=== PATIENT | female | born 1960 | race Caucasian/White ===

== ENCOUNTER 2018-04-19 16:43 | Inpatient (IN) ==
--- NOTE | 2018-04-19 17:01 | Emergency Department Note ---
Disposition Clinical Impression: Community acquired pneumonia Qualifiers: Laterality: right Lung location: upper lobe of lung Qualified Code(s): J18.1 - Lobar pneumonia, unspecified organism COPD (chronic obstructive pulmonary disease) Qualifiers: COPD type: unspecified COPD Qualified Code(s): J44.9 - Chronic obstructive pulmonary disease, unspecified Disposition: Admitted As Inpatient General Adult HPI - General Chief complaint: ED Shortness of Breath/Dyspnea Stated complaint: "pnuemonia sent from pulmonology" Time Seen by Provider: 04/19/18 17:01 Nursing Notes Reviewed: Yes Vital Signs Reviewed: Yes - History of Present Illness HPI Narrative: Patient's a 57-year-old female with history of COPD currently being treated for pneumonia who presents with continued shortness of breath, chest pain for the past 2 days. She states that at night she has severe pain in her chest anytime she rolls around. The pain is worse with deep inspiration. She otherwise continues on her home 2 L of oxygen. She has been on Augmentin and prednisone for the past 2 weeks. She states that her cough continues to be severe and she intermittently brings up sputum. He otherwise has subjective fevers and chills at home. Otherwise denies nausea, vomiting, diarrhea, abdominal pain, dysuria, hematuria. Pain Scale: 8 - Related Data Home Medications Medication Instructions Recorded Confirmed Albuterol Inhaler 06/18/17 Duoneb IH PRN PRN 06/18/17 Stilipto 08/25/17 Previous Rx's Medication Instructions Recorded Doxycycline 100 mg PO BID #14 capsule 06/18/17 Ibuprofen 800 mg PO TID PRN #15 tablet 08/25/17 Allergies Allergy/AdvReac Type Severity Reaction Status Date / Time No Known Allergies Allergy Verified 08/25/17 16:23 All systems ED: reviewed and negative except as stated. Review of Systems: As Per HPI Constitutional: Reports: fever, chills. Denies: weakness, weight change Cardiovascular: Reports: chest pain, dyspnea on exertion, orthopnea. Denies: palpitations, edema Respiratory: Reports: cough, dyspnea. Denies: wheezes, hemoptysis, stridor Gastrointestinal: Denies: abdominal pain, nausea, vomiting, diarrhea, constipation Genitourinary: Denies: urgency, dysuria, frequency Musculoskeletal: Denies: back pain Integumentary: Denies: rash Neurological: Denies: headache, weakness, numbness, paresthesias Psychiatric: Denies: anxiety, depression Endocrine: Denies: fatigue Past Medical History - Past Medical History Attestation: Yes The following information was validated with the patient. Medical history: Reports: COPD Surgical history: Reports: hysterectomy Psychiatric history: Reports: no psych history - Social History Smoking Status: Current every day smoker Smokeless Tobacco Status: No Alcohol use: Reports: none Drug use: Reports: none Physical Exam - General Limitations: no limitations General appearance: alert - Head Head exam: atraumatic, normocephalic - Eye Eye exam: Present: normal appearance, PERRL - ENT ENT exam: normal exam - Respiratory Respiratory exam: Present: normal lung sounds bilaterally, other (on 2L NC). Absent: respiratory distress - Expanded Respiratory Exam Location: rhonchi: Left, Right - Cardiovascular Cardiovascular exam: Present: regular rate, normal rhythm, normal heart sounds - Abdominal Exam Abdominal exam: Present: soft, Non-Tender. Absent: distention, guarding, rebound, rigidity - Extremities Exam Extremities exam: Present: normal inspection. Absent: pedal edema - Neurological Exam Neurological exam: Present: alert, oriented X3 - Psychiatric Psychiatric exam: Present: normal affect, normal mood - Skin Skin exam: Present: warm, dry, intact Course Course Narrative: 57-year-old female with COPD and currently being treated for pneumonia. New- onset pleuritic chest pain with concern for pulmonary embolus him. At this point the patient is low risk and we will therefore obtain d-dimer. Vital Signs Temperature 98.8 F 04/19/18 16:53 Pulse Rate 107 04/19/18 16:53 Respiratory Rate 20 04/19/18 16:53 Blood Pressure 110/67 04/19/18 16:53 O2 Sat by Pulse Oximetry 96 04/19/18 16:53 Temperature 98.8 F 04/19/18 17:05 Pulse Rate 107 04/19/18 17:05 Respiratory Rate 20 04/19/18 17:05 Blood Pressure 110/67 04/19/18 17:05 O2 Sat by Pulse Oximetry 98 04/19/18 17:15 Oxygen Delivery Oxygen Delivery Room Air Medical Decision Making - [facility] Narrative Medical decision making narrative: 57-year-old female with history of COPD presenting with failed outpatient management of her pneumonia. Recent CT scan from 04/17/18 reveals continued right-sided pneumonia. Patient's dyspnea on exertion and pain with deep inhalation and evaluated for PE with d-dimer which was negative. No need for CTA chest at this point. Otherwise patient has leukocytosis and tachycardia and therefore meet site SIRS criteria. Chest XR reveals no focal consolidation but given rhonchi and continued dyspnea, likely is non-radiographic persistent pneumonia. We will obtain blood cultures and begin the patient on broad-spectrum antibiotics. Discussed case with Dr. Handy, hospitalist who will admit the patient. Patient agrees with and understands course of treatment plan including plan for admission. All questions answered. - Medical Records Medical records reviewed: Yes I reviewed the patient's medical records. - Lab Data Lab results reviewed: Yes I reviewed the patient's lab results. Result diagrams: 04/19/18 17:30 04/19/18 17:30 Lab Results 04/19/18 04/19/18 04/19/18 Range/Units 17:30 17:30 17:30 WBC 15.0 H (4.3-11.1) K/mcL RBC 4.51 (3.82-4.97) M/mcL Hgb 14.2 (11.5-15.4) g/dL Hct 43.4 (35.3-44.9) % MCV 96.2 (83.0-100.0) fL MCH 31.5 (28.0-33.3) pg MCHC 32.7 (31.6-35.5) g/dL RDW 14.0 (11.5-14.5) % Plt Count 336 (140-400) K/mcL MPV 9.8 (9.4-12.4) fL Immature Gran % 0.4 (0-4) % Seg Neutrophils % 86.5 % Lymphocytes % 8.5 % Monocytes % 3.6 % Eosinophils % 0.7 % Basophils % 0.3 % Neutrophils # 13.0 H (1.6-8.9) K/mcL Lymphocytes # 1.3 (0.6-4.6) K/mcL Monocytes # 0.5 (0.0-1.3) K/mcL Eosinophils # 0.1 (0.0-0.6) K/mcL Basophils # 0.1 (0.0-0.2) K/mcL D-Dimer < 215 (0-500) ng/mLFEU Sodium 143 (136-145) mEq/L Potassium 3.5 (3.5-5.1) mEq/L Chloride 109 H (98-107) mEq/L Carbon Dioxide 26 (23-29) mEq/L BUN 10 (6-20) mg/dL Creatinine 0.66 (0.60-1.20) mg/dL Est GFR ( Amer) > 60 (> 60) Est GFR (Non-Af Amer) > 60 (> 60) BUN/Creatinine Ratio 15 (6-26) Glucose 149 H (70-105) mg/dL Calculated Osmolality 298 (280-300) Calcium 9.1 (8.6-10.3) mg/dL Total Bilirubin 0.2 L (0.3-1.0) mg/dL AST 11 L (13-39) Units/L ALT 7 (7-52) Units/L Alkaline Phosphatase 96 (34-104) Units/L Troponin I < 0.03 (< 0.04) ng/mL Serum Total Protein 6.5 (6.4-8.9) g/dL Albumin 4.3 (3.5-5.7) g/dL Globulin 2.2 L (2.4-3.5) g/dL Albumin/Globulin Ratio 2.0 (1.1-2.2) - Radiology Data Radiology results reviewed: Yes I reviewed the patient's radiology results. - EKG Data EKG #1 EKG attestation: Yes I reviewed and interpreted this EKG. EKG results narrative: Normal sinus rhythm rate of 86. Normal axis. IL 216, QRS 95, QT 384, QTC 457. No evidence of ST elevation. No significant changes from previous EKG dated 05/11/2013.
[2018-04-19 17:52] LABS: Basophils # 0.1 K/mcL (0.0-0.2); Basophils % 0.3 %; Eosinophils # 0.1 K/mcL (0.0-0.6); Eosinophils % 0.7 %; Hematocrit 43.4 % (35.3-44.9); Hemoglobin 14.2 g/dL (11.5-15.4); Immature Granulocytes % 0.4 % (0-4); Lymphocytes # 1.3 K/mcL (0.6-4.6); Lymphocytes % 8.5 %; Mean Corpuscular HGB Conc 32.7 g/dL (31.6-35.5); Mean Corpuscular Hemoglobin 31.5 pg (28.0-33.3); Mean Corpuscular Volume 96.2 fL (83.0-100.0); Mean Platelet Volume 9.8 fL (9.4-12.4); Monocytes # 0.5 K/mcL (0.0-1.3); Monocytes % 3.6 %; Platelet Count 336 K/mcL (140-400); Red Blood Count 4.51 M/mcL (3.82-4.97); Segmented Neutrophils % 86.5 %
[2018-04-19 18:14] LABS: Alanine Aminotransferase 7 Units/L (7-52); Albumin 4.3 g/dL (3.5-5.7); Alkaline Phosphatase 96 Units/L (34-104); Aspartate Amino Transferase 11 Units/L (13-39); BUN/Creatinine Ratio 15 (6-26); Bilirubin,Total 0.2 mg/dL (0.3-1.0); Blood Urea Nitrogen 10 mg/dL (6-20); Calcium 9.1 mg/dL (8.6-10.3); Carbon Dioxide 26 mEq/L (23-29); Chloride 109 mEq/L (98-107); Globulin 2.2 g/dL (2.4-3.5); Glucose 149 mg/dL (70-105); Osmolality,Calculated 298 (280-300); Potassium 3.5 mEq/L (3.5-5.1); Sodium 143 mEq/L (136-145); Total Protein 6.5 g/dL (6.4-8.9); Troponin I < 0.03 ng/mL (< 0.04); eGFR For Non-African Americans > 60 (> 60)
[2018-04-19] MEDS ORDERED: cefTRIAXone 1,000 MG in Water for inj. (sterile) 20 ML 10 ML IVP ONE (18:39)
[2018-04-19] MEDS ORDERED: Dexamethasone 4 MG/ML VIAL IVP ONE (18:40)
[2018-04-19] MEDS ORDERED: Azithromycin 500 MG in D5% in Water 250 ML IVPB ONE (18:40)
[2018-04-19] MEDS ORDERED: Piperacillin/Tazobactam 3.375 GM in Water for inj. (sterile) 20 ML 20 ML IVP ONE (18:42)
[2018-04-19] MEDS ORDERED: Piperacillin/Tazobactam 3.375 GM in 0.9 % Sodium Chloride Mini Bag 100 ML IVPB ONE (19:04)
--- NOTE | 2018-04-19 19:19 | Emergency Department Note ---
Disposition Clinical Impression: Community acquired pneumonia Qualifiers: Laterality: right Lung location: upper lobe of lung Qualified Code(s): J18.1 - Lobar pneumonia, unspecified organism COPD (chronic obstructive pulmonary disease) Qualifiers: COPD type: unspecified COPD Qualified Code(s): J44.9 - Chronic obstructive pulmonary disease, unspecified Disposition: Admitted As Inpatient General Adult HPI - General Chief complaint: ED Shortness of Breath/Dyspnea Stated complaint: "pnuemonia sent from pulmonology" Time Seen by Provider: 04/19/18 17:01 Source: patient Limitations: no limitations Nursing Notes Reviewed: Yes Vital Signs Reviewed: Yes - History of Present Illness HPI Narrative: Attestation note: Patient was seen with the emergency medicine resident/nurse practitioner/physician case assistant/transitional resident/medical student: Dr. YARI PRIETO I have personally performed a face to face evaluation on this patient. I have reviewed and agree with history and physical examination patient management and disposition. Briefly the salient points of the case are as follows: 57-year-old female history of pneumonia seen in pulmonary clinic presents after speaking with nurse practitioner for chest discomfort and persistent shortness of breath. Chest CT done on Thursday shows persistent pneumonia despite appropriate outpatient antibiotics. Patient had labs which showed a leukocytosis reviewed the results of her chest CT done on Thursday. We came to the medical decision that since the patient had pre-existing pneumonia despite several weeks of appropriate outpatient oral antibiotics patient will require IV antibiotics and inpatient admission and care. Hospitalist paged. Admission disposition pending. Pain Scale: 8 - Related Data Home Medications Medication Instructions Recorded Confirmed Albuterol Sulfate [Ventolin Hfa] 04/19/18 Budesonide [Pulmicort Flexhaler 04/19/18 180mcg] Pravastatin Sodium [Pravachol] 20 mg PO DAILY 04/19/18 04/19/18 predniSONE [PredniSONE] 10 mg 04/19/18 Allergies Allergy/AdvReac Type Severity Reaction Status Date / Time No Known Allergies Allergy Verified 08/25/17 16:23 Constitutional: Reports: fever, chills. Denies: weakness, weight change Cardiovascular: Reports: chest pain, dyspnea on exertion, orthopnea. Denies: palpitations, edema Respiratory: Reports: cough, dyspnea. Denies: wheezes, hemoptysis, stridor Gastrointestinal: Denies: abdominal pain, nausea, vomiting, diarrhea, constipation Genitourinary: Denies: urgency, dysuria, frequency Musculoskeletal: Denies: back pain Integumentary: Denies: rash Neurological: Denies: headache, weakness, numbness, paresthesias Psychiatric: Denies: anxiety, depression Endocrine: Denies: fatigue Past Medical History - Past Medical History Medical history: Reports: COPD Surgical history: Reports: hysterectomy Psychiatric history: Reports: no psych history - Social History Smoking Status: Current every day smoker Smokeless Tobacco Status: No Alcohol use: Reports: none Drug use: Reports: none Physical Exam - General Limitations: no limitations General appearance: alert Course Vital Signs Temperature 98.8 F 04/19/18 16:53 Pulse Rate 107 04/19/18 16:53 Respiratory Rate 20 04/19/18 16:53 Blood Pressure 110/67 04/19/18 16:53 O2 Sat by Pulse Oximetry 96 04/19/18 16:53 Temperature 98.8 F 04/19/18 17:05 Pulse Rate 107 04/19/18 17:05 Respiratory Rate 20 04/19/18 17:05 Blood Pressure 110/67 04/19/18 17:05 O2 Sat by Pulse Oximetry 98 04/19/18 17:15 Oxygen Delivery Oxygen Delivery Room Air Medical Decision Making - Lab Data Result diagrams: 04/19/18 17:30 04/19/18 17:30 Lab Results 04/19/18 04/19/18 04/19/18 Range/Units 17:30 17:30 17:30 WBC 15.0 H (4.3-11.1) K/mcL RBC 4.51 (3.82-4.97) M/mcL Hgb 14.2 (11.5-15.4) g/dL Hct 43.4 (35.3-44.9) % MCV 96.2 (83.0-100.0) fL MCH 31.5 (28.0-33.3) pg MCHC 32.7 (31.6-35.5) g/dL RDW 14.0 (11.5-14.5) % Plt Count 336 (140-400) K/mcL MPV 9.8 (9.4-12.4) fL Immature Gran % 0.4 (0-4) % Seg Neutrophils % 86.5 % Lymphocytes % 8.5 % Monocytes % 3.6 % Eosinophils % 0.7 % Basophils % 0.3 % Neutrophils # 13.0 H (1.6-8.9) K/mcL Lymphocytes # 1.3 (0.6-4.6) K/mcL Monocytes # 0.5 (0.0-1.3) K/mcL Eosinophils # 0.1 (0.0-0.6) K/mcL Basophils # 0.1 (0.0-0.2) K/mcL D-Dimer < 215 (0-500) ng/mLFEU Sodium 143 (136-145) mEq/L Potassium 3.5 (3.5-5.1) mEq/L Chloride 109 H (98-107) mEq/L Carbon Dioxide 26 (23-29) mEq/L BUN 10 (6-20) mg/dL Creatinine 0.66 (0.60-1.20) mg/dL Est GFR ( Amer) > 60 (> 60) Est GFR (Non-Af Amer) > 60 (> 60) BUN/Creatinine Ratio 15 (6-26) Glucose 149 H (70-105) mg/dL Calculated Osmolality 298 (280-300) Calcium 9.1 (8.6-10.3) mg/dL Total Bilirubin 0.2 L (0.3-1.0) mg/dL AST 11 L (13-39) Units/L ALT 7 (7-52) Units/L Alkaline Phosphatase 96 (34-104) Units/L Troponin I < 0.03 (< 0.04) ng/mL Serum Total Protein 6.5 (6.4-8.9) g/dL Albumin 4.3 (3.5-5.7) g/dL Globulin 2.2 L (2.4-3.5) g/dL Albumin/Globulin Ratio 2.0 (1.1-2.2)
[2018-04-19] MEDS: Ipratropium/Albuterol Neb 3 ML IH SCH (20:18)
[2018-04-19] MEDS: *HR* Heparin 5,000 UNIT/ML VIAL SQ SCH (20:52)
[2018-04-19] MEDS ORDERED: Naloxone 0.4 MG/ML INJ IVP PRN (21:33)
[2018-04-19] MEDS ORDERED: Acetaminophen 325 MG TABLET PO PRN (21:33)
[2018-04-19] MEDS ORDERED: Albuterol 2.5 MG/3 ML NEBULIZER IH PRN (21:33)
[2018-04-19] MEDS ORDERED: 0.9 % Sodium Chloride w KCl 20 MEQ/1,000 ML MLS IVC ONE (22:36)
[2018-04-19] MEDS ORDERED: methylPREDNISolone 125 MG/2 ML VIAL ONE (22:50)
[2018-04-19] MEDS: 0.9 % Sodium Chloride w KCl 20 MEQ/1,000 ML MLS IVC SCH (23:00)
[2018-04-20] MEDS ORDERED: MethylPREDNISolone 40 MG/ML VIAL IVP SCH
[2018-04-20] MEDS: Ipratropium/Albuterol Neb 3 ML IH SCH ×7 (00:08→23:49)
[2018-04-20] MEDS: MethylPREDNISolone 40 MG/ML VIAL IVP SCH ×4 (00:52→23:24)
--- NOTE | 2018-04-20 01:28 | Internal Med History&Physical ---
Date of Encounter: 04/19/18 Time of Encounter: 20:30 Internal Medicine - H&P: HPI History of present illness: [facility] DOWNT[facility] H&P Kerrie Pemberton [id number] Date: 04/19/2018 Time of assessment: 20:30 Time of documentation: 23:18 CC: difficulty breathing, fevers, cough [place]: Patient presents with a several day history of worsening coughing, shortness of breath, wheezing, and subjective fevers and chills. She has history of severe COPD and wears oxygen at home and uses nebulizers frequently. She has been on Augmentin and steroid taper over the last week with failed response that have progressed to worsening symptoms. She had a CT of the chest 2 days ago which suggested possible pneumonia. Her pulmonologists office staff called her today and advised her to come to ER for likely admission. She therefore came to ER where she was seen, evaluated, had labs drawn, was treated with steroids, aerosols, and antibiotics, and then admitted to hospitalist service. Upon my assessment of the patient, patient is in mild to moderate respiratory distress, wheezing audibly, and coughing vigorously. She appears to be dehydrated. She denies any vomiting or nausea. She denies any chest pain. Ap petite has been down, and she has lost some weight unintentionally because of difficulty breathing. Despite her advanced COPD and difficult to control flareups, she continues to smoke about a pack per day. Her states she was smoking 3 packs per day and has recently cut down. However, she has no intent to quit smoking. PMH: COPD, osteoporosis PSH: Denies Psychiatric History: None FH: M: F: +COPD, lung disease, and lung cancer ROS: Pertinent +: dyspnea, coughing, wheezing, productive sputum, appetite loss, weight loss, fevers, chills Pertinent -: no chest pain, no hemoptysis, no vomiting, no diarrhea. Exam: Vitals: currently unavailable due to [facility] downtime General: mild pursed lip breathing; dehydrated; and slightly anxious HEENT: Pupils equal round and reactive to light and accommodation, extraocular muscles are intact, neck supple, dry mucous membranes, excessive use of accessory muscles for breathing. Chest: Barrel chested, very distant and faint breath sounds with markedly prolonged expiratory phase, diffuse wheezing, faint rhonchi, and crackles prominently in the right base. Accessory muscle use of ribs for breathing. Tachycardic rhythm with a heart rate in the low 100s. No murmurs, thrills, or rubs. Abdomen: Soft, nontender, no hepatosplenomegaly, positive bowel sounds. Scaphoid abdomen. Extremities: Cap refill roughly 3 seconds, positive clubbing, pulses equal in all 4 extremities, no joint effusion, full range of motion. Back exam: No flank pain or spine pain. Neurologic: Cranial nerves 2-12 through intact and symmetrical, no focal motor/sensory deficits, speech normal and clear. Skin: Warm, dry, mild skin tenting, no rash. Psychiatric: Mildly anxious normal mood and affect otherwise. I Impression/plan: 1. Acute exacerbation of COPD status post failed outpatient treatment: We will proceed with IV steroids, scheduled aerosols with PRN aerosols, IV antibiotics, oxygen treatment, and monitoring on telemetry. 2. Suspect right lower lobe pneumonia: Blood and sputum cultures ordered. Patient was started on Vancomycin, Rocephin, and Zithromax in the ER. We will continue his antibiotics and de-escalate once clinical improvement manifests. 3. DVT prophylaxis: Heparin subcutaneously. Joseph David M.D. Past Med Surg Social Fam HX - Past Medical History Medical history: COPD Psychiatric history: no psych history - Past Surgical History Surgical History: hysterectomy Additional surgical history: rotator cuff. gangelon cysts removed from feet. left hand surgery for cyst removal - Social History Smoking Status: Current every day smoker Packs per day: 1 Smokeless Tobacco Status: No Alcohol use: none Drug use: none - Family History Mother Hx Family Cardiac Disorders: Yes Hx Family Cancer: Yes (breast cancer) Hx Family Genitourinary Disorders: Yes Father Hx Family Cardiac Disorders: Yes Hx Family Cancer: Yes Internal Medicine - H&P: Meds Albuterol Sulfate [Ventolin Hfa] 2 puff IH Q6H PRN 04/19/18 [History] Amoxicillin/Clavulanate [Augmentin] 875 mg PO BIDWM 04/19/18 [History] Budesonide [Pulmicort Flexhaler 180mcg] 1 puff IH BID 04/19/18 [History] Ergocalciferol (VITAMIN D2) [Vitamin D2] 50,000 unit PO QMONTH 04/19/18 [History] Ipratropium/Albuterol Sulfate [Iprat-Albut 0.5-3(2.5) mg/3 ml] 3 ml IH Q6H PRN 04/19/18 [History] Oxygen 2 l IH AD 04/19/18 [History] Pravastatin Sodium [Pravachol] 20 mg PO HS 04/19/18 [History] Zoledronic Acid (Reclast) [Reclast Premix 5 MG/100 ML] 5 mg IV AD 04/19/18 [History] predniSONE [PredniSONE] 10 mg PO DAILY 04/19/18 [History] Allergy/AdvReac Type Severity Reaction Status Date / Time No Known Allergies Allergy Verified 04/19/18 19:43 All Systems PM: A 10-system review of systems was performed and is negative for pertinent findings except as documented above in the HPI. - Constitutional Vitals: Temp Pulse Resp BP Pulse Ox 98.5 F 98 16 123/74 98 04/19/18 19:55 04/19/18 19:55 04/20/18 00:08 04/19/18 19:55 04/20/18 00:08 Exam: . Internal Med - H&P Results - Labs CBC & Chem 7: 04/19/18 17:30 04/19/18 17:30 Labs: Short CBC 04/19/18 Range/Units 17:30 WBC 15.0 H (4.3-11.1) K/mcL Hgb 14.2 (11.5-15.4) g/dL Hct 43.4 (35.3-44.9) % Plt Count 336 (140-400) K/mcL Neutrophils # 13.0 H (1.6-8.9) K/mcL BMP 04/19/18 17:30 Sodium 143 Potassium 3.5 Chloride 109 H Carbon Dioxide 26 BUN 10 Creatinine 0.66 Glucose 149 H Calcium 9.1 Cardiac Enzymes 04/19/18 Range/Units 17:30 Troponin I < 0.03 (< 0.04) ng/mL Liver Function 04/19/18 Range/Units 17:30 Total Bilirubin 0.2 L (0.3-1.0) mg/dL AST 11 L (13-39) Units/L ALT 7 (7-52) Units/L Alkaline Phosphatase 96 (34-104) Units/L Albumin 4.3 (3.5-5.7) g/dL - Impressions ITS Impressions Chest X-Ray 04/19/18 17:48 IMPRESSION: No definite radiographic evidence of acute cardiopulmonary disease. Pulmonary sequela typical of that seen with smoking, including emphysema. Correlate with clinical history. D/ / Trip Haynes / Trip Haynes Interpreting Provider: Trip Haynes - Time Spent With Patient Total time spent is greater than 50% in coordination of care (as documented) at patient's floor/unit and/or counseling patient:
[2018-04-20] MEDS ORDERED: Vancomycin 750 MG VIAL IVPB ONE (05:24)
[2018-04-20] MEDS: *HR* Heparin 5,000 UNIT/ML VIAL SQ SCH ×3 (06:13→20:47)
[2018-04-20 06:38] LABS: Hematocrit 36.8 % (35.3-44.9); Immature Granulocytes % 0.6 % (0-4); Lymphocytes # 0.4 K/mcL (0.6-4.6); Lymphocytes % 4.6 %; Mean Corpuscular HGB Conc 32.6 g/dL (31.6-35.5); Mean Corpuscular Hemoglobin 31.3 pg (28.0-33.3); Mean Corpuscular Volume 96.1 fL (83.0-100.0); Monocytes # 0.1 K/mcL (0.0-1.3); Monocytes % 1.1 %; Neutrophils # 7.6 K/mcL (1.6-8.9); Platelet Count 270 K/mcL (140-400); Red Blood Count 3.83 M/mcL (3.82-4.97); Red Cell Distribution Width 14.2 % (11.5-14.5); Segmented Neutrophils % 93.7 %
[2018-04-20 07:03] LABS: Alanine Aminotransferase 6 Units/L (7-52); Albumin 3.8 g/dL (3.5-5.7); Albumin/Globulin Ratio 2.1 (1.1-2.2); Alkaline Phosphatase 84 Units/L (34-104); Aspartate Amino Transferase 8 Units/L (13-39); BUN/Creatinine Ratio 28 (6-26); Bilirubin,Total 0.2 mg/dL (0.3-1.0); Blood Urea Nitrogen 13 mg/dL (6-20); Calcium 8.8 mg/dL (8.6-10.3); Carbon Dioxide 21 mEq/L (23-29); Chloride 112 mEq/L (98-107); Globulin 1.8 g/dL (2.4-3.5); Glucose 183 mg/dL (70-105); Magnesium 2.1 mg/dL (1.6-2.6); Osmolality,Calculated 297 (280-300); Potassium 4.4 mEq/L (3.5-5.1); Sodium 141 mEq/L (136-145); Total Protein 5.6 g/dL (6.4-8.9); eGFR For Non-African Americans > 60 (> 60)
[2018-04-20] MEDS ORDERED: Aminoglycoside Consult 1 EACH MC ONE (07:39)
[2018-04-20] MEDS: cefTRIAXone 1,000 MG in Water for inj. (sterile) 20 ML 10 ML IVP SCH (08:12)
[2018-04-20] MEDS: Azithromycin 500 MG in D5% in Water 250 ML IVPB SCH (08:13)
[2018-04-20] MEDS: 0.9 % Sodium Chloride w KCl 20 MEQ/1,000 ML MLS IVC SCH (08:14)
[2018-04-20] MEDS ORDERED: Beclomethasone 80mcg MDI IH SCH ×3 (10:00→22:00)
--- NOTE | 2018-04-20 15:25 | Internal Med Progress Note ---
Hospitalist Progress Note - Encounter Date of Encounter: 04/20/18 Time of Encounter: 11:30 - Subjective Interval History: Patient seen and examined at bedside currently does not appear to be in any respiratory distress she states that her breathing is much improved since being admitted. She denies any chest pain - Exam Vitals: Temp Pulse Resp BP Pulse Ox 97.8 F 94 16 93/53 92 04/20/18 11:17 04/20/18 11:17 04/20/18 11:17 04/20/18 11:17 04/20/18 11:17 Exam: General appearance: Present: cooperative, mild distress, A&O X 3, pleasant, answers questions appropriately Exam: - Head Head exam: Present: normal inspection - Eye Eye exam: Present: EOMI, normal appearance - Neck Neck exam general surgery: Absent: tenderness - Respiratory Respiratory exam: Present: Scattered wheezes. Absent: chest wall tenderness, CTAB, rales, respiratory distress, rhonchi - Cardiovascular Cardiovascular exam: Present: RRR. Absent: diastolic murmur, systolic murmur - GI/Abdominal GI/Abdominal exam: Present: normal bowel sounds, soft. Absent: tenderness - Extremities Exam Extremities exam: Present: warm, radial pulses palpable and symmetrical. Ab sent: calf tenderness, pedal edema, tenderness - Neurological Exam Neurological exam: Present: no focal deficits, strengths equal and symetr throughout. Absent: motor sensory deficit, facial droop, speech deficit - Skin Skin exam: Present: dry, normal color, warm - Assessment and Plan (1) DVT prophylaxis Current Visit: Yes Status: Acute Assessment and Plan: Continue with heparin subcutaneous (2) COPD (chronic obstructive pulmonary disease) Current Visit: Yes Status: Acute Assessment and Plan: Patient was treated outpatient for COPD continued to experience symptoms despite treatment with steroids. We will continue with oxygen titrated maintain SPO2 greater than 90% We will discontinue oral steroids and place patient on IV Solu-Medrol 40 mg IV every 8 hours Continue with bronchodilators Azithromycin as well as Rocephin IV (3) Community acquired pneumonia Current Visit: Yes Status: Suspected Assessment and Plan: Patient presented with worsening cough shortness of breath wheezing subjective fevers and chills has a history of severe COPD and wears oxygen at home she had originally been placed on Augmentin and steroid taper failed -CT of the chest completed as outpatient 2 days ago which suggested possible pneumonia Blood/sputum cultures have been obtained-pending results We will check respiratory panel Continue with bronchodilators Continue with Rocephin and azithromycin and vancomycin - Time Spent with Patient Total time spent is greater than 50% in coordination of care (as documented) at patient's floor/unit and/or counseling patient: Internal Medicine: Result - Labs CBC & Chem 7: 04/20/18 06:02 04/20/18 06:02 Labs: Short CBC 04/19/18 04/20/18 Range/Units 17:30 06:02 WBC 15.0 H 8.1 (4.3-11.1) K/mcL Hgb 14.2 12.0 D (11.5-15.4) g/dL Hct 43.4 36.8 (35.3-44.9) % Plt Count 336 270 (140-400) K/mcL Neutrophils # 13.0 H 7.6 (1.6-8.9) K/mcL BMP 04/19/18 04/20/18 17:30 06:02 Sodium 143 141 Potassium 3.5 4.4 D Chloride 109 H 112 H Carbon Dioxide 26 21 L BUN 10 13 Creatinine 0.66 0.47 L Glucose 149 H 183 H Calcium 9.1 8.8 Cardiac Enzymes 04/19/18 Range/Units 17:30 Troponin I < 0.03 (< 0.04) ng/mL Liver Function 04/19/18 04/20/18 Range/Units 17:30 06:02 Total Bilirubin 0.2 L 0.2 L (0.3-1.0) mg/dL AST 11 L 8 L (13-39) Units/L ALT 7 6 L (7-52) Units/L Alkaline Phosphatase 96 84 (34-104) Units/L Albumin 4.3 3.8 (3.5-5.7) g/dL - ABG Interpretation ABG results: PT/INR, D-dimer D-Dimer < 215 ng/mLFEU (0-500) 04/19/18 17:30 - Impressions Impressions Chest X-Ray 04/19/18 17:48 IMPRESSION: No definite radiographic evidence of acute cardiopulmonary disease. Pulmonary sequela typical of that seen with smoking, including emphysema. Correlate with clinical history. D/ / Trip Haynes / Trip Haynes Interpreting Provider: Trip Haynes Consult Discharge Plan - Plan Referrals: Francisco Huffman MD [Primary Care Provider] - (2) COPD (chronic obstructive pulmonary disease) Qualifiers: COPD type: unspecified COPD Qualified Code(s): J44.9 - Chronic obstructive pulmonary disease, unspecified (3) Community acquired pneumonia Qualifiers: Laterality: right Lung location: upper lobe of lung Qualified Code(s): J18.1 - Lobar pneumonia, unspecified organism
--- NOTE | 2018-04-20 16:45 | Electrocardiograph Report ---
[place] [id number] Test Date: 2018-04-19 Pat Name: Kerrie Pemberton Department: [id number] Room: 3B37 Gender: F Librarian Assistant: : [id number] Requested By: Rosina Ordonez Order Number: [id number] Reading MD: Carrie Calderon Measurements Intervals [place] Rate: 86 P: 81 DC: 216 QRS: 87 QRSD: 95 T: 77 QT: 382 QTc: 457 Interpretive Statements Sinus rhythm Prolonged DC interval Biatrial enlargement Electronically Signed On 04-20-2018 16:44:34 EST by Carrie Calderon
--- NOTE | 2018-04-20 17:05 | Electrocardiograph Report ---
[place] [id number] Test Date: 2018-04-20 Pat Name: Kerrie Pemberton Department: 113 Room: 3B37 Gender: F Carpenters Supervisor: : [id number] Requested By: Gabo Currna Order Number: [id number] Reading MD: Carrie Calderon Measurements Intervals [place] Rate: 97 P: -88 [place]: 171 QRS: 83 QRSD: 91 T: 20 QT: 371 QTc: 426 Interpretive Statements ECTOPIC ATRIAL RHYTHM Nonspecific ST-T wave changes Electronically Signed On 04-20-2018 17:03:59 EST by Carrie Calderon
[2018-04-20 19:47] LABS: Adenovirus Not Detected (Not Detect); Coronavirus 229E Not Detected (Not Detect); Coronavirus HKU1 Not Detected (Not Detect); Coronavirus NL63 Not Detected (Not Detect); Coronavirus OC43 Not Detected (Not Detect); Human Metapneumovirus Not Detected (Not Detect); Human Rhinovirus/Enterovirus Not Detected (Not Detect); Influenza A Subtype 2009 H1 Not Detected (Not Detect); Influenza A Untypeable Not Detected (Not Detect); Influenza B Not Detected (Not Detect); Parainfluenza Virus 1 Not Detected (Not Detect); Parainfluenza Virus 2 Not Detected (Not Detect); Parainfluenza Virus 3 Not Detected (Not Detect)
[2018-04-20 19:48] LABS: Bordetella Pertussis Not Detected (Not Detect); Chlamydophila pneumoniae Not Detected (Not Detect); Mycoplasma pneumoniae Not Detected (Not Detect); Parainfluenza Virus 4 Not Detected (Not Detect); Respiratory Syncytial Virus Not Detected (Not Detect)
[2018-04-20] MEDS: Beclomethasone 80mcg MDI IH SCH (20:05)
[2018-04-21] MEDS: Ipratropium/Albuterol Neb 3 ML IH SCH ×6 (03:44→23:12)
[2018-04-21] MEDS: *HR* Heparin 5,000 UNIT/ML VIAL SQ SCH ×3 (06:01→21:02)
[2018-04-21 07:08] LABS: Basophils % 0.1 %; Hematocrit 36.4 % (35.3-44.9); Hemoglobin 11.6 g/dL (11.5-15.4); Immature Granulocytes % 0.9 % (0-4); Lymphocytes # 0.7 K/mcL (0.6-4.6); Lymphocytes % 3.3 %; Mean Corpuscular HGB Conc 31.9 g/dL (31.6-35.5); Mean Corpuscular Hemoglobin 30.8 pg (28.0-33.3); Mean Corpuscular Volume 96.6 fL (83.0-100.0); Mean Platelet Volume 10.3 fL (9.4-12.4); Monocytes # 0.6 K/mcL (0.0-1.3); Monocytes % 2.6 %; Neutrophils # 19.6 K/mcL (1.6-8.9); Platelet Count 291 K/mcL (140-400); Red Blood Count 3.77 M/mcL (3.82-4.97); Red Cell Distribution Width 14.8 % (11.5-14.5); Segmented Neutrophils % 93.1 %
[2018-04-21 07:27] LABS: BUN/Creatinine Ratio 24 (6-26); Blood Urea Nitrogen 11 mg/dL (6-20); Calcium 9.3 mg/dL (8.6-10.3); Carbon Dioxide 24 mEq/L (23-29); Chloride 112 mEq/L (98-107); Glucose 147 mg/dL (70-105); Osmolality,Calculated 298 (280-300); Potassium 4.2 mEq/L (3.5-5.1); Sodium 143 mEq/L (136-145); eGFR For Non-African Americans > 60 (> 60)
[2018-04-21] MEDS: Beclomethasone 80mcg MDI IH SCH ×2 (07:44→19:56)
[2018-04-21] MEDS: MethylPREDNISolone 40 MG/ML VIAL IVP SCH ×2 (10:34→18:56)
[2018-04-21] MEDS: cefTRIAXone 1,000 MG in Water for inj. (sterile) 20 ML 10 ML IVP SCH (10:34)
[2018-04-21] MEDS: Azithromycin 500 MG in D5% in Water 250 ML IVPB SCH (10:35)
--- NOTE | 2018-04-21 10:45 | Internal Med Progress Note ---
Hospitalist Progress Note - Encounter Date of Encounter: 04/21/18 Time of Encounter: 10:45 - Subjective Interval History: Patient seen and examined at bedside. Respiratory status greatly improved denies any coughing or wheezing at this time no chest pain or shortness of breath she is on her home O2 level - Exam Vitals: Temp Pulse Resp BP Pulse Ox 97.8 F 96 24 105/68 98 04/21/18 10:19 04/21/18 10:19 04/21/18 10:19 04/21/18 10:19 04/21/18 10:19 Exam: General appearance: Present: cooperative, mild distress, A&O X 3, pleasant, answers questions appropriately Exam: - Head Head exam: Present: normal inspection - Eye Eye exam: Present: EOMI, normal appearance - Neck Neck exam general surgery: Absent: tenderness - Respiratory Respiratory exam: Present: Lung sounds are clear Absent: chest wall tenderness, rales, respiratory distress, rhonchi - Cardiovascular Cardiovascular exam: Present: RRR. Absent: diastolic murmur, systolic murmur - GI/Abdominal GI/Abdominal exam: Present: normal bowel sounds, soft. Absent: tenderness - Extremities Exam Extremities exam: Present: warm, radial pulses palpable and symmetrical. Absent: calf tenderness, pedal edema, tenderness - Neurological Exam Neurological exam: Present: no focal deficits, strengths equal and symetr throughout. Absent: motor sensory deficit, facial droop, speech deficit - Skin Skin exam: Present: dry, normal color, warm - Assessment and Plan (1) COPD (chronic obstructive pulmonary disease) Current Visit: Yes Status: Acute Assessment and Plan: Patient was treated outpatient for COPD continued to experience symptoms despite treatment with steroids. We will continue with oxygen titrated maintain SPO2 greater than 90% We will discontinue oral steroids and place patient on IV Solu-Medrol 40 mg IV every 8 hours Continue with bronchodilators Azithromycin as well as Rocephin IV 04/21 Oxygen saturations are stable this time on home O2 No wheezing noted at this time we will de-escalate IV Solu-Medrol and attempt to switch back to oral steroids in the a.m. Continue with bronchodilators Continue with azithromycin as well as Rocephin IV we will switch to oral antibiotics in the a.m. Vancomycin has been discontinued MRSA swab is negative Anticipate possible discharge in the a.m. (2) DVT prophylaxis Current Visit: Yes Status: Acute Assessment and Plan: Continue with heparin subcutaneous (3) Community acquired pneumonia Current Visit: Yes Status: Suspected Assessment and Plan: Patient presented with worsening cough shortness of breath wheezing subjective fevers and chills has a history of severe COPD and wears oxygen at home she had originally been placed on Augmentin and steroid taper failed -CT of the chest completed as outpatient 2 days ago which suggested possible pneumonia Blood/sputum cultures have been obtained-pending results We will check respiratory panel Continue with bronchodilators Continue with Rocephin and azithromycin and vancomycin 04/21 No wheezing or cough at this time patient is on her home oxygen We will de-escalate IV Solu-Medrol attempt to switch to orals steroids in the a.m. MRSA swab is negative we will discontinue vancomycin continue with Rocephin and azithromycin Continue bronchial dilators (4) Leukocytosis Current Visit: Yes Status: Acute Assessment and Plan: Most likely secondary to steroid use we will continue to monitor - Time Spent with Patient Total time spent is greater than 50% in coordination of care (as documented) at patient's floor/unit and/or counseling patient: Internal Medicine: Result - Labs CBC & Chem 7: 04/21/18 06:21 04/21/18 06:21 Labs: Short CBC 04/21/18 Range/Units 06:21 WBC 21.1 H D (4.3-11.1) K/mcL Hgb 11.6 (11.5-15.4) g/dL Hct 36.4 (35.3-44.9) % Plt Count 291 (140-400) K/mcL Neutrophils # 19.6 H (1.6-8.9) K/mcL BMP 04/21/18 06:21 Sodium 143 Potassium 4.2 Chloride 112 H Carbon Dioxide 24 BUN 11 Creatinine 0.45 L Glucose 147 H Calcium 9.3 - ABG Interpretation ABG results: PT/INR, D-dimer D-Dimer < 215 ng/mLFEU (0-500) 04/19/18 17:30 Consult Discharge Plan - Plan Referrals: Lona Greene [facility] [Advanced Practice Nurse] - 04/28/18 4:00 pm (1) COPD (chronic obstructive pulmonary disease) Qualifiers: COPD type: unspecified COPD Qualified Code(s): J44.9 - Chronic obstructive p ulmonary disease, unspecified (3) Community acquired pneumonia Qualifiers: Laterality: right Lung location: upper lobe of lung Qualified Code(s): J18.1 - Lobar pneumonia, unspecified organism (4) Leukocytosis Qualifiers: Leukocytosis type: unspecified Qualified Code(s): D72.829 - Elevated white blood cell count, unspecified
[2018-04-21] MEDS ORDERED: Melatonin 3 MG TABLET PO PRN (21:03)
[2018-04-21] MEDS: Nystatin SUSP 5 ML UD.LIQ PO SCH (22:18)
[2018-04-22] MEDS: Ipratropium/Albuterol Neb 3 ML IH SCH ×3 (03:54→11:47)
[2018-04-22 05:20] LABS: Basophils % 0.1 %; Hematocrit 37.2 % (35.3-44.9); Lymphocytes # 1.1 K/mcL (0.6-4.6); Lymphocytes % 5.6 %; Mean Corpuscular HGB Conc 32.3 g/dL (31.6-35.5); Mean Corpuscular Hemoglobin 31.3 pg (28.0-33.3); Mean Corpuscular Volume 96.9 fL (83.0-100.0); Mean Platelet Volume 10.2 fL (9.4-12.4); Monocytes # 0.8 K/mcL (0.0-1.3); Monocytes % 4.3 %; Neutrophils # 16.7 K/mcL (1.6-8.9); Platelet Count 281 K/mcL (140-400); Red Blood Count 3.84 M/mcL (3.82-4.97); Red Cell Distribution Width 14.8 % (11.5-14.5)
[2018-04-22 06:04] LABS: BUN/Creatinine Ratio 21 (6-26); Blood Urea Nitrogen 11 mg/dL (6-20); Calcium 9.3 mg/dL (8.6-10.3); Carbon Dioxide 28 mEq/L (23-29); Chloride 107 mEq/L (98-107); Glucose 135 mg/dL (70-105); Osmolality,Calculated 297 (280-300); Potassium 3.7 mEq/L (3.5-5.1); Sodium 143 mEq/L (136-145); eGFR For Non-African Americans > 60 (> 60)
[2018-04-22] MEDS: *HR* Heparin 5,000 UNIT/ML VIAL SQ SCH (06:18)
[2018-04-22] MEDS: MethylPREDNISolone 40 MG/ML VIAL IVP SCH (06:18)
[2018-04-22 07:22] VITALS: BP 112/68
[2018-04-22] MEDS: Beclomethasone 80mcg MDI IH SCH (07:29)
[2018-04-22] MEDS ORDERED: predniSONE 20 MG TABLET PO SCH (09:00)
[2018-04-22] MEDS: Nystatin SUSP 5 ML UD.LIQ PO SCH (09:44)
[2018-04-22] MEDS ORDERED: Azithromycin 250 MG TABLET PO SCH (10:30)
[2018-04-22] MEDS: cefTRIAXone 1,000 MG in Water for inj. (sterile) 20 ML 10 ML IVP SCH (10:52)
[2018-04-22] MEDS: Azithromycin 500 MG in D5% in Water 250 ML IVPB SCH (10:53)
--- NOTE | 2018-04-22 11:02 | Discharge Summary ---
- NOTES TO OUTPATIENT PROVIDER Notes to Outpatient Provider: COPD, pneumonia - cont azithromycin and steroid taper nyastatin for thrush Orders not resulted at time of discharge: Pending orders 04/19/18 17:30 Culture,Blood [BC] Stat 04/19/18 21:39 Culture,Sputum with Gram Stain [RM] Stat Date of Encounter: 04/22/18 Time of Encounter: 10:53 - Discharge Diagnosis (1) COPD (chronic obstructive pulmonary disease) Priority: Primary Status: Acute Qualifiers: COPD type: unspecified COPD Qualified Code(s): J44.9 - Chronic obstructive pulmonary disease, unspecified (2) Community acquired pneumonia Priority: Primary Status: Suspected Qualifiers: Laterality: right Lung location: upper lobe of lung Qualified Code(s): J18.1 - Lobar pneumonia, unspecified organism (3) Leukocytosis Priority: Secondary Status: Acute Qualifiers: Leukocytosis type: unspecified Qualified Code(s): D72.829 - Elevated white blood cell count, unspecified Hospital course: Ms. Pemberton is a 57 year old female past medical history of COPD oxygen-dependent osteoporosis patient had been experiencing several day history of worsening cough shortness of breath and wheezing as well as fevers and chills. She continued to experiencing symptoms despite the use of oxygen as well as home nebulizer use. She had been on a steroid taper as well as Augmentin which was prescribed by her PCP over the past week without improvement. She did have an outpatient CT of chest which should suggest possible pneumonia. She was advised to go to the hospital for treatment. Patient was admitted and treated for community acquired pneumonia. Blood cultures were drawn and are negative as of today urine antigens for strep pneumonia and Klebsiella are negative respiratory panel was negative patient was initiated on azithromycin and Rocephin and vancomycin MRSA swab was negative and vancomycin was discontinued. Patient was given IV steroids and tapered to oral steroids. Currently patient is at her respiratory baseline as well as her oxygen baseline. No wheezes noted patient will be switched over to oral azithromycin for another 4 days to complete a 6 day course. She will be sent home with a steroid taper. Patient did have some white plaque in college suggestive of thrush initiated on nystatin swish and swallow which she will be given a prescription prior to discharge. Advised patient to follow-up with her primary care provider as well as stores assistant since these providers nervous and can adjust medications accordingly, patient verbalized understanding. I did advise patient to stop smoking and offered smoking cessation aids which patient declined. Currently patient is hemodynamically stable at this time and she is ready for discharge. - Time Spent with Patient Total time spent providing and/or coordinating discharge services: - Discharge Medications Prescriptions: Azithromycin [Zithromax] 250 mg PO DAILY #4 tablet Nystatin [Nystatin Suspension] 100,000 unit PO QID #1 bottle predniSONE [PredniSONE] 10 mg PO DAILY #30 tablet Home Medications: Albuterol Sulfate [Ventolin Hfa] 2 puff IH Q6H PRN 04/19/18 [History] Budesonide [Pulmicort Flexhaler 180mcg] 1 puff IH BID 04/19/18 [History] Ergocalciferol (VITAMIN D2) [Vitamin D2] 50,000 unit PO QMONTH 04/19/18 [History] Ipratropium/Albuterol Sulfate [Iprat-Albut 0.5-3(2.5) mg/3 ml] 3 ml IH Q6H PRN 04/19/18 [History] Oxygen 2 l IH AD 04/19/18 [History] Pravastatin Sodium [Pravachol] 20 mg PO HS 04/19/18 [History] Zoledronic Acid (Reclast) [Reclast Premix 5 MG/100 ML] 5 mg IV AD 04/19/18 [History] Azithromycin [Zithromax] 250 mg PO DAILY #4 tablet 04/22/18 [Rx] Nystatin [Nystatin Suspension] 100,000 unit PO QID #1 bottle 04/22/18 [Rx] predniSONE [PredniSONE] 10 mg PO DAILY #30 tablet 04/22/18 [Rx] Allergies/Adverse Reactions: Allergy/AdvReac Type Severity Reaction Status Date / Time No Known Allergies Allergy Verified 04/19/18 19:43 Date of admission: 04/19/18 21:35 Primary care physician: Francisco Huffman MD Consults: 04/20/18 09:40 Consult to Nurse Navigator [CONS] Routine Comment: COPD Discharging clinician: Manuela Busby Anticipated date of discharge: 04/22/18 - Constitutional Vitals: Temp Pulse Resp BP Pulse Ox 97.9 F 77 16 112/68 98 04/22/18 07:21 04/22/18 07:21 11/08/18 07:29 04/22/18 07:21 04/22/18 07:29 General appearance: Present: A&O X 3 Exam: . - Head Head exam: Present: atraumatic, normocephalic - Eye Eye exam: Present: PERRL, conjuntiva pink, sclera anicteric Pupils: Present: PERRL - Neck Neck exam general surgery: Present: supple, trachea midline. Absent: lymphadenopathy - Respiratory Respiratory exam: Present: CTAB. Absent: accessory muscle use, rales, rhonchi, wheezes - Cardiovascular Cardiovascular exam: Present: RRR, +S1, +S2. Absent: diastolic murmur, gallop, rubs, systolic murmur - GI/Abdominal GI/Abdominal exam: Present: normal bowel sounds, soft, no peritoneal signs. Absent: distended, tenderness - Extremities Exam Extremities exam: Present: warm, radial pulses palpable and symmetrical. Absent: calf tenderness, cyanotic, pedal edema - Neurological Exam Neurological exam: Present: CN II-XII intact, oriented X3, no focal deficits. Absent: pronater drift, facial droop, speech deficit - Skin Skin exam: Present: dry, intact - Patient Status Disposition: Home, Self-Care Condition: Good Functional capacity at discharge: independent ambulation Overall status at discharge: patient is back to baseline - Discharge Instructions Follow Up With: Lona Greene CNP [Advanced Practice Nurse] - 04/28/18 4:00 pm - Diet and Activity Activity: increase activity as tolerated Diet: advance to your usual diet
== END 2018-04-22 12:40 | disposition home or self-care (01) | DRG 190 ==
LOC: 3BNU 16:43 → EMEROOARM 16:43 → 3BNU 19:46
PROVIDERS: ADMIT Internal Medicine; ATTEND Internal Medicine